=== PATIENT | male | born 1950 | race Caucasian/White ===

== ENCOUNTER 2018-08-15 00:10 | Emergency (ER) | payer MEDICARE ==
[~2018-08-15] VITALS: Ht 177.8 cm; Wt 84.2 kg
[2018-08-15 00:38] VITALS: BP 118/79
== END 2018-08-15 02:40 | disposition left against medical advice (07) ==
LOC: ER 00:10
DX: S81.812A Laceration without foreign body, left lower leg, initial encounter (principal); W01.0XXA Fall on same level from slipping, tripping and stumbling without subsequent striking against object, initial encounter; Y93.89 Activity, other specified; Y92.89 Other specified places as the place of occurrence of the external cause; Y99.8 Other external cause status; Z53.21 Procedure and treatment not carried out due to patient leaving prior to being seen by health care provider